=== PATIENT | female | born 1965 | race Caucasian/White ===

== ENCOUNTER 2022-12-18 07:39 | Outpatient (CLI) | payer BC ==
[2022-12-18] MEDS ORDERED: Iopamidol 300 61% 100 ML VIAL FS ONE (12:26)
== END 2022-12-18 07:40 | disposition home or self-care (01) ==
LOC: CSHCT 07:39
PROVIDERS: ATTEND Surgery
DX: R10.33 Periumbilical pain (principal); K76.9 Liver disease, unspecified; K76.0 Fatty (change of) liver, not elsewhere classified; R16.0 Hepatomegaly, not elsewhere classified; Z90.49 Acquired absence of other specified parts of digestive tract; K44.9 Diaphragmatic hernia without obstruction or gangrene
CPT/HCPCS: 74177

== ENCOUNTER 2024-04-02 09:50 | Outpatient (CLI) | payer BC ==
[2024-04-02] MEDS ORDERED: Iopamidol 370 76% 100 ML VIAL ONE (13:36)
== END 2024-04-02 09:51 | disposition home or self-care (01) ==
LOC: CSHCT 09:50
PROVIDERS: ATTEND Family Medicine
DX: R42 Dizziness and giddiness (principal); R90.82 White matter disease, unspecified
CPT/HCPCS: 70470; Q9967

== ENCOUNTER 2025-03-02 13:51 | Outpatient (CLI) | payer BC | END 2025-03-02 13:52 | disposition home or self-care (01) | LOC: CSHMAMMO 13:51 | PROVIDERS: ATTEND Obstetrics & Gynecology | DX: Z12.31 Encounter for screening mammogram for malignant neoplasm of breast (principal); Z80.3 Family history of malignant neoplasm of breast; Z85.828 Personal history of other malignant neoplasm of skin; Z91.89 Other specified personal risk factors, not elsewhere classified | CPT/HCPCS: 77063; 77067 ==

== ENCOUNTER 2025-03-16 14:14 | Outpatient (CLI) | payer BC | END 2025-03-16 14:15 | disposition home or self-care (01) | LOC: CSHMRI 14:14 | PROVIDERS: ATTEND Family Medicine Sports Medicine | DX: M75.111 Incomplete rotator cuff tear or rupture of right shoulder, not specified as traumatic (principal); M71.811 Other specified bursopathies, right shoulder ==